=== PATIENT | female | born 1965 | race Caucasian/White ===

== ENCOUNTER → 2020-10-07 06:36 | Outpatient (CLI) | payer OTHER, SELFPAY ==
[2020-10-07 16:43] LABS: SARS-CoV-2 RNA PCR Negative
== END ==
PROVIDERS: PCP Physician Assistant; Visit Provider Physician Assistant
DX: R68.89 Other general symptoms and signs (principal); Z20.822 Contact with and (suspected) exposure to COVID-19
CPT/HCPCS: C9803; U0003; U0005

== ENCOUNTER → 2022-07-18 09:47 | Outpatient (CLI) | payer OTHER, SELFPAY ==
--- NOTE | ~2022-07-18 | MM_ITS ---
EXAMINATION: MM scrn bernie implant BI w clover HISTORY: Screening mammogram TECHNIQUE: Craniocaudal and mediolateral oblique 3-D tomosynthesis images with implant displacement a nd synthetic 2-D images were generated. Craniocaudal and mediolateral oblique views of the breasts wi thout implant displacement were obtained using full field digital mammography. CAD analysis was submi tted and interpreted. COMPARISON: No prior mammogram is available for comparison at this institution. BREAST PARENCHYMAL COMPOSITION: There are scattered areas of fibroglandular density. FINDINGS: RIGHT BREAST: There is no evidence of suspicious mass, calcification, or architectural distortion to suggest malignancy. LEFT BREAST: There is a 3 mm mass in the slightly inner breast on the implant displaced views. IMPRESSION: 1. Left breast mass. 2. Additional mammographic views and possible breast ultrasound are recommended. BI-RADS Category 0: Incomplete: Needs additional imaging evaluation. Reviewed, dictated and finalized at location A. IMPRESSION: 1. Left breast mass. 2. Additional mammographic views and possible breast ultrasound are recommended . BI-RADS Category 0: Incomplete: Needs additional imaging evaluation.
== END ==
PROVIDERS: PCP Internal Medicine; Visit Provider Physician Assistant
DX: Z12.31 Encounter for screening mammogram for malignant neoplasm of breast (principal); N63.20 Unspecified lump in the left breast, unspecified quadrant
CPT/HCPCS: 77063; 77067

== ENCOUNTER → 2022-08-15 08:25 | Outpatient (CLI) | payer OTHER, SELFPAY ==
--- NOTE | ~2022-08-15 | MMUS_ITS ---
EXAMINATION: MM diag bernie implant LT w clover, US breast LT complete HISTORY: 3 mm mass TECHNIQUE: Additional 3-D tomosynthesis images of the left breast were performed and synthetic 2-D im ages were generated. CAD analysis was submitted and interpreted. High resolution complete left breast ultrasound examination including all 4 quadrants and subareolar was performed. COMPARISON: 07/2022 bilateral implant screening mammogram FINDINGS: MAMMOGRAPHIC FINDINGS: There is a circumscribed approximately 4 mm mass in the upper mid left breast. No other suspicious mass, architectural distortion, microcalcifications, skin thickening or retractio n is detected. Status post augmentation mammoplasty. ULTRASOUND: 12:00 5 cm from nipple: Approximately 3 mm sonolucency is noted, without internal vascularity or post erior shadowing, probably a small cyst. Six-month follow-up targeted left breast ultrasound is recomm ended. IMPRESSION: 1. Probably benign 3 mm cyst at 12:00 5 cm from nipple 2. Six-month targeted 12:00 left breast ultrasound follow-up is recommended BI-RADS category 3, probably benign findings. Reviewed, dictated and finalized at location A. IMPRESSION: 1. Probably benign 3 mm cyst at 12:00 5 cm from nipple 2. Six-month targeted 12:00 left breast ultrasound follow-up is recommended BI-RADS category 3, probably benign findings.
== END ==
PROVIDERS: PCP Physician Assistant; Visit Provider Physician Assistant
DX: R92.8 Other abnormal and inconclusive findings on diagnostic imaging of breast (principal)
CPT/HCPCS: 76641; 77061; 77065; G0279

== ENCOUNTER 2023-02-19 09:26 | Outpatient (CLI) | payer OTHER, SELFPAY ==
--- NOTE | ~2023-02-19 | US_ITS ---
EXAMINATION: US breast LT limited HISTORY: Six-month follow-up of probably benign left breast mass TECHNIQUE: Limited left breast ultrasound is performed. COMPARISON: 09/03/2022 FINDINGS: There is a stable 3 mm round, circumscribed, hypoechoic mass with no posterior features or internal vascularity at the 12:00 location, 5 cm from the nipple. No suspicious cystic or solid mass is identified. IMPRESSION: Probably benign left breast mass. Recommend six month follow-up targeted left breast ultrasound as we ll as routine screening mammography. BI-RADS category 3, probably benign findings. Reviewed, dictated and finalized at location A. [employer] IMPRESSION: Probably benign left breast mass. Recommend six month follow-up targeted left b reast ultrasound as well as routine screening mammography. BI-RADS category 3, probably benign findings.
== END 2023-02-19 09:27 ==
PROVIDERS: PCP Physician Assistant; Visit Provider Physician Assistant
DX: R92.8 Other abnormal and inconclusive findings on diagnostic imaging of breast (principal)
CPT/HCPCS: 76642

== ENCOUNTER 2023-10-22 09:12 | Outpatient (CLI) | payer OTHER, SELFPAY ==
--- NOTE | ~2023-10-22 | MMUS_ITS ---
EXAMINATION: MM diag bernie implant BI w colver, US breast LT limited HISTORY: Follow-up left breast mass TECHNIQUE: Additional 3-D tomosynthesis images of the breasts were performed and synthetic 2-D images were generated. CAD analysis was submitted and interpreted. High resolution Limited left breast ultr asound was performed. COMPARISON: None Comparison to multiple prior studies sequentially, with oldest reviewed study dated 07/18/2022. BREAST PARENCHYMAL COMPOSITION: Not dense: There are scattered areas of fibroglandular density. FINDINGS: MAMMOGRAPHIC FINDINGS: There are bilateral subglandular saline implants. There are no new suspicious masses, calcifications or architectural distortion in either breast to suggest malignancy ULTRASOUND: Limited left breast ultrasound: At 12:00, 5 cm from the nipple there is a 3 mm cyst. No suspicious so nographic abnormalities to suggest malignancy. IMPRESSION: 1. No evidence for malignancy in either breast. 2. Routine yearly screening mammogram and regular clinical breast examination are recommended. BI-RADS Category 2: Benign finding(s). Reviewed, dictated and finalized at location B. IMPRESSION: 1. No evidence for malignancy in either breast. 2. Routine yearly screening mammogram and regular clinical breast examination a re recommended. BI-RADS Category 2: Benign finding(s).
== END 2023-10-22 09:13 ==
PROVIDERS: PCP Physician Assistant; Visit Provider Physician Assistant
DX: R92.8 Other abnormal and inconclusive findings on diagnostic imaging of breast (principal)
CPT/HCPCS: 76642; 77062; 77066; G0279